=== PATIENT | female | born 1950 | race Two or more races ===

== ENCOUNTER 2021-02-28 07:34 | Day surgery (SDC) | payer OTHER | END 2021-02-28 12:10 | disposition home or self-care (01) | LOC: AMB-ENDOS 07:34 | PROVIDERS: ATTEND Surgery | DX: K62.89 Other specified diseases of anus and rectum (principal); K64.8 Other hemorrhoids; Z20.822 Contact with and (suspected) exposure to COVID-19 ==

== ENCOUNTER 2021-04-10 08:45 | Inpatient (IN) | payer OTHER ==
[~2021-04-10] VITALS: Ht 157.5 cm; Wt 89.8 kg
[2021-04-10] MEDS ORDERED: LASIX20 MG PO (11:37)
[2021-04-10] MEDS ORDERED: LEVOTHYROXINE25 MCG PO (11:37)
[2021-04-10] MEDS ORDERED: ZESTRIL40 M1 PO (11:37)
[2021-04-10] MEDS ORDERED: EVISTA60 MG PO (11:38)
[2021-04-10] MEDS ORDERED: VERELAN240 MG PO (11:38)
[2021-04-13] MEDS ORDERED: ARTHRITIS PAIN650 MG (16:04)
[2021-04-17] MEDS ORDERED: ULTRACET PO (13:07)
[2021-04-17] MEDS ORDERED: INTESTINEX680 M1 PO (13:07)
[2021-04-17] MEDS ORDERED: DICY20TA PO (13:07)
== END 2021-04-17 13:39 | disposition home or self-care (01) | DRG 330 ==
LOC: O/R 04-13 08:00 → SURH 04-13 08:00
PROVIDERS: Surgery; ADMIT Surgery; ATTEND Surgery
PROC: 0JR807Z Replacement of Abdomen Subcutaneous Tissue and Fascia with Autologous Tissue Substitute, Open Approach (ICD-10-PCS; 2021-04-13)
PROC: 3E0F7SF Introduction of Other Gas into Respiratory Tract, Via Natural or Artificial Opening (ICD-10-PCS; 2021-04-13)
PROC: 0DTF4ZZ Resection of Right Large Intestine, Percutaneous Endoscopic Approach (ICD-10-PCS; principal; 2021-04-13 14:15)
PROC: 0WQF0ZZ Repair Abdominal Wall, Open Approach (ICD-10-PCS; 2021-04-13 14:15)
DX: D17.5 Benign lipomatous neoplasm of intra-abdominal organs (principal); K56.699 Other intestinal obstruction unspecified as to partial versus complete obstruction; K43.0 Incisional hernia with obstruction, without gangrene; K42.0 Umbilical hernia with obstruction, without gangrene